=== PATIENT | male | born 1950 | race Caucasian/White ===

== ENCOUNTER 2018-07-08 14:22 | Outpatient (CLI) | payer BC, MEDICARE ==
[~2018-07-08] VITALS: Ht 182.9 cm; Wt 116.1 kg
[~2018-07-08 14:22] MED LIST: ASP325TEC PO; ASP81TEC PO; ATRV10T PO; CLOP75TA PO; ENAL10TA PO; MTP100TCR PO; NIA500ERT PO; OMEG-12 PO; PNT40TEC PO; PRX20T PO; RIVA20TA2 PO
[2018-07-08] MEDS ORDERED: METO-387 PO (14:24)
[2018-07-08] MEDS ORDERED: ATOR20TA66 PO (14:24)
[2018-07-08] MEDS ORDERED: LOSA100T8 PO (14:24)
[2018-07-08] MEDS ORDERED: RIVA20TA PO (14:24)
[2018-07-08] MEDS ORDERED: AMLO10TA6 PO (14:24)
[2018-07-08] MEDS ORDERED: OMEG100032 PO (14:24)
[2018-07-08] MEDS ORDERED: PARO20TA5 PO (14:24)
[2018-07-08] MEDS ORDERED: CETI10TA17 PO (14:24)
[2018-07-08] MEDS ORDERED: NIAC500T24 PO (14:24)
== END 2018-07-08 14:26 | disposition home or self-care (01) ==
LOC: PREOP 14:22
PROVIDERS: ATTEND Surgery
DX: Z01.818 Encounter for other preprocedural examination (principal)

== ENCOUNTER 2018-07-15 11:15 | Day surgery (SDC) | payer BC, MEDICARE ==
[~2018-07-15] VITALS: Ht 182.9 cm; Wt 116.1 kg
[~2018-07-15 11:15] MED LIST changes: +AMLO10TA6 PO; +ATOR20TA66 PO; +CETI10TA17 PO; +LOSA100T8 PO; +METO-387 PO; +NIAC500T24 PO; +OMEG100032 PO; +PARO20TA5 PO; +RIVA20TA PO
[2018-07-15] MEDS ORDERED: NS IV 500 ML 500 ML ONE (11:28)
--- NOTE | 2018-07-15 11:45 | Conscious Sedation/ASA ---
Conscious Sedation Pre-Proced Time 11:30 ASA Score 2 For ASA 3 and 4: Consider anesthesia and medical clearance. Also, for patients with a history of failed moderate sedation consider anesthesia. Airway Lungs Heart ASA score ASA 1: a normal healthy patient ASA 2: a patient with a mild systemic disease (mid diabetes, controlled hypertension, obesity ASA 3: a patient with a severe systemic disease that limits activity (angina , COPD, prior Myocardial infarction) ASA 4: a patient with an incapacitating disease that is a constant threat to life (CHF, renal failure) ASA 5: a moribund patient not expected to survive 24 hrs. (ruptured aneurysm) ASA 6: a declared brain patient whose organs are being harvested. For emergent operations, add the letter E after the classification Mallampati Classification Grade 3 Sedation Plan Analgesia, Amnesia, Plan communicated to team members, Discussed options with patient/fam, Discussed risks with patient/fam The patient is an appropriate candidate to undergo the planned procedure, sedation, and anesthesia. The patient immediately re-assessed prior to indication. JANET DIANA MD Jul 15, 2018 11:45 am
--- NOTE | 2018-07-15 11:46 | Progress Note-Pre Operative ---
Pre-Operative Progress Note H&P Reviewed The H&P was reviewed, patient examined and no changes noted. Date Seen by Provider: Jul 15, 2018 Time Seen by Provider: 11:30 Date H&P Reviewed: Jul 15, 2018 Time H&P Reviewed: 11:30 Pre-Operative Diagnosis: screening colonoscopy JANET DIANA MD Jul 15, 2018 11:46 am
[2018-07-15] MEDS ORDERED: NS IV 500 ML 500 ML IV PRN (11:51)
[2018-07-15 11:55] VITALS: BP 132/104
[2018-07-15] MEDS ORDERED: ACETAMINOPHEN 325 MG TABLET PO PRN (12:00)
[2018-07-15] MEDS ORDERED: fentaNYL INJECTION 100 MCG/2 ML AMP IVP ONE (12:00)
[2018-07-15] MEDS ORDERED: HYDROcodone/APAP 5 MG/325 MG (LORTAB) TAB PO PRN (12:00)
[2018-07-15] MEDS ORDERED: ONDANSETRON 4 MG/2 ML (SDV) Z0FRAN IV PRN (12:00)
[2018-07-15] MEDS ORDERED: morphine INJ 10 MG/ML 1ML (SYR OR VIAL) IV PRN (12:00)
[2018-07-15] MEDS ORDERED: LIDOCAINE JELLY 2% 6 ML SYRINGE MM PRN (12:00)
[2018-07-15] MEDS ORDERED: MIDAZOLAM 2 MG/2 ML (VERSED) VIAL IVP ONE (12:00)
[2018-07-15] MEDS ORDERED: fentaNYL INJECTION 100 MCG/2 ML AMP ONE ×2 (12:28)
[2018-07-15] MEDS ORDERED: MIDAZOLAM 2 MG/2 ML (VERSED) VIAL ONE ×6 (12:28)
[2018-07-15] MEDS ORDERED: LIDOCAINE JELLY 2% 6 ML SYRINGE ONE (12:29)
--- NOTE | 2018-07-15 13:31 | Progress Note-Post Operative ---
Post-Operative Progess Note Surgeon (s)/Back Seam Stitcher (s) Surgeon JANET DIANA MD Back Seam Stitcher: none Pre-Operative Diagnosis screening colonoscopy, symptomatic left upper lip skin lesion. Post-Operative Diagnosis normal colon and rectum, hyperkeratotic symptomatic skin lesion left upper lip(1cm). Procedure & Operative Findings Date of Procedure 07/15/18 Procedure Performed/Findings Colonoscopy. excision symptomatic skin lesion left upper lip Anesthesia Type CS with local Estimated Blood Loss Estimated blood loss (mL): minimal Specimens/Packing Specimens Removed left upper lip lesion. JANET DIANA MD Jul 15, 2018 1:31 pm
--- NOTE | 2018-07-15 13:33 | Discharge Inst-Surgical ---
D/C Lap Instructions-ADALGISA Follow Up 10 yrs or PRN. ok to remove sutures 5-7days Activity as tolerated High Fiber Diet 25g or more per day Avoid Alcohol, Caffeine, Spicy [place] and Acid foods. Drink 64 fluid oz or more of fluids per day. Symptoms to Report: Fever over 101 degree F, Nausea/Vomiting If any problems/questions: Contact your physician or go to Emergency Room JANET DIANA MD Jul 15, 2018 1:33 pm
[2018-07-15 13:35] VITALS: BP 129/90
[2018-07-15 14:10] VITALS: BP 123/84
[2018-07-15 14:19] VITALS: BP 123/84
--- NOTE | 2018-07-15 21:39 | OPERATIVE REPORT ---
DATE OF SERVICE: 07/15/2018 ATTENDING PRIMARY CARE PHYSICIAN: Millie Young MD PREOPERATIVE DIAGNOSES: Screening colonoscopy, symptomatic left upper lip lesion 1 cm in size. POSTOPERATIVE DIAGNOSES: Normal colon and rectum; symptomatic skin lesion approximately 1 cm in size, which appeared to be benign. PROCEDURE: Colonoscopy, excision of left upper lip lesion, approximately 1 cm in size. SURGEON: Janet Diana MD ANESTHESIA: Conscious sedation with local. ESTIMATED BLOOD LOSS: Minimal. FINDINGS: No significant hemorrhoids. Prostate gland was palpable and appeared normal. Remainder of the rectum and colon were normal. No polyps identified. The lesion of the left upper lip appeared to be a hypertrophied actinic horn, approximately 1 cm in size. DISPOSITION: The patient tolerated the procedure well. INDICATIONS: The patient is a 68-year-old male in need of a screening colonoscopy. He has not had a colonoscopy up to this point in his life. He reports for the most part he is doing well, does not report any major issues with diarrhea nor constipation as well as no red blood per rectum nor any dark tarry stools. He also does not report any family history of colon cancer. He also has a symptomatic skin lesion of the upper left lip. He reports that this has been around for several years; however, has grown larger in size and will bleed on occasion. This is a raised hyperkeratotic lesion, which appears to be a benign actinic horn. DESCRIPTION OF PROCEDURE: The patient was brought to the endoscopy suite, laid in the left lateral decubitus position. After adequate IV pain and sedating medications and conscious sedation anesthesia, a digital rectal examination was performed. No significant hemorrhoids identified. Normal sphincter tone was felt and there were no palpable masses. Prostate gland was palpable and appeared normal. The endoscope was then intubated into the anus and rectum gently insufflated. The endoscope was then advanced to the valves of [place] of the rectum with no polyps or any neoplasms identified. We then proceeded through the sigmoid colon where no diverticulosis was identified. The endoscope was then advanced to the remainder of the descending, transverse and ascending colon to the cecum. These segments were normal. There were no polyps or any neoplasms identified throughout the colon or rectum. The endoscope was then slowly withdrawn while taking a second look and suctioning of residual air with no additional findings. The patient tolerated this portion of the procedure well. We will have him continue with medical management with high-fiber diet with at least 30 grams of fiber a day as well as at least 64 fluid ounces of water to promote soft stools on a daily basis. He does not need another colonoscopy for another 10 years. Under the same conscious sedation anesthesia, we then proceeded with excision of the upper lip lesion. The area was prepped and draped in a standard surgical fashion. The lesion was then anesthetized using 1% lidocaine. The lesion was then retracted anteriorly with pickups and excised using sharp dissecting scissors. Good hemostasis was observed with direct pressure and the skin edges were approximated using interrupted 4-0 nylon sutures. The patient tolerated the procedure well. We will call him with the results of the biopsy and he may remove the sutures in approximately 1 week. Job ID: [id number] DocumentID: [id number] Dictated Date: 07/15/2018 13:21:03 Lithographic General Worker Date: 07/15/2018 21:38:55 Dictated By: JANET DIANA MD
== END 2018-07-15 14:26 | disposition home or self-care (01) ==
LOC: ENDO 11:15
PROVIDERS: ATTEND Surgery
DX: Z12.11 Encounter for screening for malignant neoplasm of colon (principal); D23.0 Other benign neoplasm of skin of lip

== ENCOUNTER → 2018-07-27 | Outpatient (RCR) | payer BC, MEDICARE | END | disposition home or self-care (01) | LOC: CR3 06-27 07:27 | PROVIDERS: ATTEND Physician Assistant | DX: Z29.8 Encounter for other specified prophylactic measures (principal) ==

== ENCOUNTER → 2018-08-15 | Outpatient (CLI) | payer BC, MEDICARE | LOC: CARD 11:10 | PROVIDERS: ATTEND Internal Medicine Cardiovascular Disease | DX: I48.0 Paroxysmal atrial fibrillation (principal); I25.10 Atherosclerotic heart disease of native coronary artery without angina pectoris; I63.9 Cerebral infarction, unspecified; R06.09 Other forms of dyspnea; I10 Essential (primary) hypertension; E78.2 Mixed hyperlipidemia | CPT/HCPCS: 93306 ==

== ENCOUNTER 2018-08-26 07:35 | Outpatient (RCR) | payer BC | END 2018-08-28 | disposition home or self-care (01) | LOC: CR3 07:35 | PROVIDERS: ATTEND Physician Assistant | DX: Z29.8 Encounter for other specified prophylactic measures (principal) ==

== ENCOUNTER → 2018-09-30 | Outpatient (RCR) | payer BC ==
[~2018-09-30] MED LIST changes: -AMLO10TA6 PO; +AMLO10TA7 PO; +LOSA100T57 PO; -LOSA100T8 PO
== END | disposition home or self-care (01) ==
LOC: CR3 08-31 07:00
PROVIDERS: ATTEND Physician Assistant
DX: Z29.8 Encounter for other specified prophylactic measures (principal)
CPT/HCPCS: 93798

== ENCOUNTER → 2018-11-02 | Outpatient (RCR) | payer BC, MEDICARE | END | disposition home or self-care (01) | LOC: CR3 10-03 07:00 | PROVIDERS: ATTEND Physician Assistant | DX: Z29.8 Encounter for other specified prophylactic measures (principal) ==

== ENCOUNTER 2018-12-02 07:24 | Outpatient (RCR) | payer MEDICARE ==
[~2018-12-02 07:24] MED LIST changes: -RIVA20TA PO
== END 2018-12-04 | disposition home or self-care (01) ==
LOC: CR3 07:24
PROVIDERS: ATTEND Physician Assistant
DX: Z29.8 Encounter for other specified prophylactic measures (principal)

== ENCOUNTER 2018-12-23 07:20 | Outpatient (RCR) | payer MEDICARE | END 2019-01-04 | disposition home or self-care (01) | LOC: CR3 07:20 | PROVIDERS: ATTEND Physician Assistant | DX: Z29.8 Encounter for other specified prophylactic measures (principal) ==

== ENCOUNTER → 2019-09-21 | Outpatient (CLI) | payer MEDICARE ==
[~2019-09-21] MED LIST changes: -METO-387 PO; +MTP25TSR PO
== END ==
LOC: CARD 10:59
PROVIDERS: ATTEND Internal Medicine Cardiovascular Disease
DX: I07.1 Rheumatic tricuspid insufficiency (principal); I11.9 Hypertensive heart disease without heart failure; I49.5 Sick sinus syndrome; G45.9 Transient cerebral ischemic attack, unspecified; E78.5 Hyperlipidemia, unspecified
CPT/HCPCS: 93306

== ENCOUNTER → 2019-09-25 | Outpatient (CLI) | payer MEDICARE ==
[~2019-09-25] VITALS: Ht 182 cm; Wt 117.0 kg
[~2019-09-25] MED LIST changes: +CATHETER FLUSH 10 ML SYR IV PRN; +REGADENOSON 0.4 MG/5 ML SYR (LEXISCAN) IV ONE
[2019-09-25 09:43] VITALS: BP 167/84
--- NOTE | 2019-09-25 17:21 | STRESS TEST ---
DATE OF SERVICE: 09/25/2019 LEXISCAN MYOVIEW STRESS TEST REPORT REFERRING PHYSICIAN: Millie Young MD Baseline heart rate is 70. Baseline blood pressure 195/98. Baseline EKG is atrial fibrillation with no ischemic changes. In summary, the patient was injected with 10.26 mCi of technetium-99 Myoview and the resting images were acquired. Then, the patient received 0.4 mg of Lexiscan followed by 29.9 mCi of technetium-99 Myoview. Throughout the test, there were no EKG changes. The resting and stress images were acquired and reviewed in the short axis, horizontal long axis, and vertical long axis views. Review of the images showed diaphragmatic attenuation with typical male pattern. No significant ischemia or infarction was seen. SSS is 4, SDS is 4, TID value 1.02. On the gated images, the left ventricle appeared to be in normal size with normal contractility. Calculated ejection fraction 70%. CONCLUSION: 1. The patient tolerated Lexiscan well. 2. Diaphragmatic attenuation with typical male pattern with no significant ischemia or infarction on SPECT images. 3. Normal left ventricular size with normal contractility. Calculated ejection fraction 70%. Job ID: [id number] DocumentID: [id number] Dictated Date: 09/25/2019 16:25:33 Gas Welding Machine Operator Date: 09/25/2019 17:20:55 Dictated By: YOVANI HERNANDEZ MD
== END ==
LOC: CARD 08:04
PROVIDERS: ATTEND Internal Medicine Cardiovascular Disease
DX: I49.5 Sick sinus syndrome (principal); G45.9 Transient cerebral ischemic attack, unspecified; E78.5 Hyperlipidemia, unspecified; I10 Essential (primary) hypertension
CPT/HCPCS: 78452; 93017

== ENCOUNTER → 2023-04-02 | Outpatient (CLI) | payer MEDICARE ==
[~2023-04-02] MED LIST changes: +AMLO-251 PO; -AMLO10TA7 PO; -CATHETER FLUSH 10 ML SYR IV PRN; -LOSA100T57 PO; +LOSA100T58 PO; -REGADENOSON 0.4 MG/5 ML SYR (LEXISCAN) IV ONE
== END ==
LOC: CARD 08:38
PROVIDERS: ATTEND Physician Assistant
DX: I10 Essential (primary) hypertension (principal); I25.10 Atherosclerotic heart disease of native coronary artery without angina pectoris
CPT/HCPCS: 93306

== ENCOUNTER → 2023-05-26 | Outpatient (CLI) | payer MEDICARE ==
[~2023-05-26] MED LIST changes: +CATHETER FLUSH 10 ML SYR IVP PRN; +REGADENOSON 0.4 MG/5 ML SYR IV ONE
[2023-05-26 08:44] VITALS: BP 150/101
--- NOTE | 2023-05-27 07:42 | Cardiology Stress Test Report ---
Stress Test Report Date of Procedure/Referring: Date of Procedure: May 27, 2023 PCP Dariel Young MD Admitting Physician Admitting Physician: Attending Physician: Carmela Pham Baseline Heart Rate: 64 Baseline Blood Pressure: Blood Pressure Systolic: 150 Blood Pressure Diastolic: 101 Baseline Vitals Vital Signs Date Time Temp Pulse Resp B/P (MAP) Pulse Ox O2 Delivery O2 Flow Rate FiO2 05/26/23 08:44 64 150/101 (117) Baseline EKG: Baseline EKG: A fib Summary After explaining the procedure to the patient, he signed a consent and then brought to the stress nuclear laboratory. Patient received 0.4 mg Lexiscan for stress test, ECG, heart rate and blood pressure were monitored continuously. Resting and stress dose of radio tracer were injected, imaging was acquired and reviewed in short axis, horizontal long axis and vertical long axis views. TID: 1.17 SSS: 3 SDS: 3 EF: 57 Patient tolerated Lexiscan well Baseline atrial fibrillation persisted during test Typical male pattern with no significant ischemia or infarction on SPECT images Normal left ventricular size, ejection fraction 57%, gated images are unreliable due to underlying atrial fibrillation Copy Copies To 1: DARIEL YOUNG MD, BASHAR J MD May 27, 2023 07:42
== END ==
LOC: CARD 07:08
PROVIDERS: ATTEND Physician Assistant
DX: I48.91 Unspecified atrial fibrillation (principal); I25.10 Atherosclerotic heart disease of native coronary artery without angina pectoris
CPT/HCPCS: 78452; 93017; A9502